=== PATIENT | female | born 1975 | race Caucasian/White ===

== ENCOUNTER 2021-05-31 11:46 | Emergency (ER) | payer BC, SELFPAY ==
[2021-05-31] VITALS (16 sets, daily range): BP systolic 149–166; BP diastolic 87–108; PULSE 74–84; RESP 15–118; TEMP 36.3–36.4; O2SAT 97–100
--- NOTE | ~2021-05-31 | XR_ITS ---
EXAMINATION: XR chest 2V DATE: 05/31/2021 14:25 INDICATION: Chest pressure TECHNIQUE: PA and lateral views of the chest are obtained. COMPARISON: None available FINDINGS: The lungs are free of acute opacities. There is no pleural effusion or pneumothorax. The ca rdiomediastinal silhouette is normal. There is mild thoracic spondylosis. Surgical clips in the upper abdomen on the lateral view are likely from prior cholecystectomy. IMPRESSION: 1. No acute cardiopulmonary abnormality. Reviewed, dictated and finalized at location B.
--- NOTE | ~2021-05-31 | CT_ITS ---
EXAMINATION: CTA brain carotid EXAM DATE: 05/31/2021 15:50 INDICATION: R sided paresthesia. Hypertension. TECHNIQUE: Noncontrast head CT. Spiral CTA of the carotid arteries was performed with intravenous i njection 100 cc of Omnipaque 350. Axial, coronal, sagittal reformatted images reviewed. Additional r eformatted images created on dedicated 3-D workstation. NASCET comparable standard used to assess th e degree of arterial stenosis. Spiral CT angiogram cerebral arteries performed with the same intrave nous injection of contrast. Source images of the brain CTA transferred to dedicated workstation for 3 -D rotational image creation. Coronal, sagittal maximum intensity pixel images also reviewed. The d ose-length product (DLP) for this examination was 1664.92 mGy-cm. The exposure was tailored accordi ng to patient size, and iterative reconstruction (ASIR) was used as additional dose reduction techniq ue. There is no prior study for comparison. FINDINGS: The right vertebral artery is dominant. There is bilateral carotid bulb 0% stenosis, no foc al extracranial carotid plaque identified. Minimal right carotid siphon arterial sclerosis without st enosis. There is no carotid or vertebral basilar arterial dissection or fibromuscular dysplasia. The re are no cerebral artery aneurysms. There is symmetric cerebral artery arborization. The sagittal, t ransverse and sigmoid sinuses enhance normally, no venous sinus thrombosis. Internal cerebral veins a lso enhance normally. There is no acute intraparenchymal hemorrhage. No evidence of intraparenchymal brain mass lesion. N o evidence of acute infarction. There is no mass effect or midline shift. There is no obstructive hy drocephalus suspected. There are no extra-axial collections. Incidental Findings: Mild cervical spondylosis. IMPRESSION: 1. No acute carotid or intracranial findings. 2. Bilateral carotid bulb 0% stenosis. Reviewed, dictated and finalized at location G.
--- NOTE | 2021-05-31 11:59 | ECG_ITS ---
Measurements Intervals [place] Rate: 76 P: -19 LA: 142 QRS: -25 QRSD: 77 T: -21 QT: 360 QTc: 405 Interpretive Statements SINUS RHYTHM BORDERLINE LEFT AXIS DEVIATION [QRS AXIS < -20] POSSIBLE PREVIOUS INFERIOR WALL OR NO PREVIOUS ECG AVAILABLE FOR COMPARISON Electronically Signed On 05-31-2021 15:47:48 CDT by Jacky Barr M.D.
--- NOTE | 2021-05-31 13:28 | PC.NURSE ---
Pt ambulatory to ED with complaints of blurred vision and bilateral eyes and tingling to right arm and leg. Pt states blurred vision has been ongoing for a few days without improvement. Tingling of right leg started around 0900 this morning and was shortly followed by tingling of the right arm. Pt denies weakness to extremities. Denies numbness of extremities. Pt denies sensory changes to face. No facial droop noted. VSS. A&O x4 with clear speech. Pt states last known normal was Monday.
--- NOTE | 2021-05-31 14:09 | PC.NURSE ---
Dr. Matthew at bedside for pt assessment.
--- NOTE | 2021-05-31 14:17 | PC.NURSE ---
Pt to radiology.
[2021-05-31 14:18] LABS: Glucose Point of Care 95 mg/dl (65-105)
[2021-05-31] MEDS: SODIUM CHLORIDE 0.9% IV 1,000 ML 999 ML IV CONT (14:36)
[2021-05-31 14:50] LABS: Add Urine Microscopic? NO; Appearance Urine Clear (Clear); Bilirubin Urine Negative (Negative); Blood Urine Negative (Negative); Color Urine Yellow (Yellow); Glucose Urine UA Negative (Negative); Ketones Urine Negative (Negative); Leukocyte Esterase Ur Negative LEU/UL (Negative); Nitrate Urine Negative (Negative); Protein Urine Negative (Negative); Specific Grav Ur 1.017 (1.001-1.035); Urobilinogen Urine Negative mg/dL (<2.0)
[2021-05-31 14:58] LABS: Basophils Absolute Auto 0.1 K/mm3 (0.0-0.1); Basophils Percent Auto 0.6 % (0.2-1.2); Eosinophils Absolute Auto 0.1 K/mm3 (0-0.3); Eosinophils Percent Auto 1.2 % (0-4.4); Hemoglobin 14.6 g/dL (12.0-15.0); Immature Granulocyte Absolute 0.04 K/mm3 (0.00-0.031); Immature Granulocyte Percent A 0.4 % (0-0.5); Lymphocytes Absolute Auto 3.18 K/mm3 (0.9-3.2); Lymphocytes Percent Auto 28.8 % (18.3-44.2); Mean Corpuscular HGB Conc 34.8 g/dl (32-36); Mean Corpuscular Volume 97.9 fl (80-100); Mean Platelet Volume 9.7 fl (7.4-10.4); Monocytes Absolute Auto 0.9 K/mm3 (0.1-0.6); Monocytes Percent Auto 8.3 % (2.6-8.5); Neutrophils Absolute Auto 6.7 K/mm3 (1.3-6.7); Neutrophils Percent Auto 60.7 % (45.5-73.1); Platelet Count Result 227 k/mm3 (150-375); Red Blood Count 4.29 M/mm3 (4.2-5.4); Red Cell Distribution Width 11.8 % (11.5-14.5)
[2021-05-31 15:08] LABS: INR 1.1; Prothrombin Time 13.3 Seconds (11.1-14.7)
[2021-05-31 15:09] LABS: Amphetamine Screen Urine Negative (Negative); Barbiturate Screen Urine Negative (Negative); Benzodiazepines Screen Urine Negative (Negative); Cannabinoid Screen Urine Negative (Negative); Cocaine Screen Urine Negative (Negative); Methadone Screen Urine Negative (Negative); Opiate Screen Urine Negative (Negative); Phencyclidine Screen Urine Negative (Negative)
[2021-05-31 15:15] LABS: Potassium 3.9 mmol/L (3.4-5.0)
[2021-05-31 15:27] LABS: Troponin I < 0.012 ng/mL (0.000-0.034)
[2021-05-31 15:34] LABS: Alanine Aminotransferase 27 U/L (4-35); Albumin Level 4.2 g/dL (3.5-5.1); Alkaline Phosphatase 75 U/L (38-126); Anion Gap 5 mmol/L (8-16); Aspartate Amino Transferase 24 U/L (14-36); Bilirubin,Total 0.6 mg/dL (0.2-1.3); Blood Urea Nitrogen 13 mg/dL (7-17); Calcium 8.9 mg/dL (8.4-10.2); Carbon Dioxide 27 mmol/L (22-30); Chloride 104 mmol/L (98-107); Estimated CRCL calculation 111 ml/min; Estimated Glomerular Filt Rate > 60; Glucose 92 mg/dL (65-110); Sodium 136 mmol/L (137-145)
--- NOTE | 2021-05-31 15:38 | PC.NURSE ---
Pt to CT.
--- NOTE | 2021-05-31 16:52 | ED.NEUROSD ---
HPI - Neuro Symptoms/Deficit General Chief Complaint: Neuro Symptoms/Deficit Stated Complaint: High Blood Pressure Time Seen by Provider: 05/31/21 13:55 Source: patient History of Present Illness HPI Narrative: Patient presents with numbness on the right arm and right lower extremity. Patient reports she was at work and developed left-sided chest pain shortly after that pain resolved well right upper extremity and right lower extremity numbness. Scribes a sensation of feeling full she reports she is able to ambulate and has good strength reports she is able to feel normally in those extremities just feels full. She denies any shortness of breath she denies any recent hospitalizations or surgeries denies prior history of blood clots. Denies any fevers, cough, congestion and she denies abdominal pain, nausea, vomiting, diaphoresis denies any significant family history of cardiac disease. Related Data Home Medications Medication Instructions Recorded Confirmed No Home Medications 05/31/21 05/31/21 Allergies Allergy/AdvReac Type Severity Reaction Status Date / Time bita Allergy Mild Unknown Verified 05/31/21 13:32 tramadol [From Ultram] Allergy Mild Unknown Verified 05/31/21 13:32 vilazodone [From Viibryd] Allergy Mild Unknown Verified 05/31/21 13:32 Review of Systems Review of Systems: CONSTITUTIONAL: Denies fever, chills, or sweats. EYES: Denies visual changes, redness, or discharge. ENT: Denies rhinorrhea, congestion, sore throat, or otalgia. CARDIOVASCULAR: Denies chest pain, palpitations, or edema. RESPIRATORY: Denies cough or dyspnea. GASTROINTESTINAL: Denies abdominal pain, nausea, vomiting, or diarrhea. GENITOURINARY: Denies dysuria or hematuria. SKIN: Denies rash or itching. MUSCULOSKELETAL: Denies back pain, joint pain, or myalgia. NEUROLOGIC: Denies headache, numbness, dizziness, or weakness. PSYCHIATRIC: Denies anxiety or depression. All systems reviewed & are unremarkable except as noted in HPI and below PMFSH Past Medical History Medical History Goiter History of depression Vitamin D deficiency Surgical History Surgical History Delivery by section 1992, 1993, 2005 History of cholecystectomy 2004 History of hysterectomy 2006 Family History Family History Mother Cervical cancer Mother Rheumatoid arthritis Social History Social History Smoking status: Current every day smoker Tobacco type: cigarettes Second hand tobacco smoke exposure: Yes Additional smoking assessment comments: 1 pack a day, smoking for 19 years Alcohol intake: current Substance use: never Substance use type: does not use Exam Narrative: GENERAL: Well-appearing, well-nourished, and in no acute distress. HEAD: Normocephalic, atraumatic. EYES: PERRLA and EOMI. ENT: Nares clear, no rhinorrhea or epistaxis. Mucous membranes moist. NECK: Supple. No masses. No JVD CHEST: Clear to auscultation. No respiratory distress. No wheezes rales or rhonchi HEART: Regular rate and rhythm. No murmur heard. Normal peripheral pulses. ABDOMEN: Soft, nontender, nondistended, normal active bowel sounds. EXTREMITIES: Normal range of motion. No edema. SKIN: Warm, dry, no rash. NEURO: Cranial nerves II through XII are intact patient has 5/5 strength in all extreme sensation intact to light touch in all extremities alert and oriented x3. PSYCH: Normal mood and affect. Course Reevaluation(s) Reevaluation #1: Patient reports feeling improved results and plan reviewed with patient. Patient is comfortable with outpatient plan. Date: 05/31/21 Time: 16:53 Consultations Consultation #1: Case discussed with Dr. Sheppard from neurology given patient's improvements in work-up thus far being negative symptoms u
== END 2021-05-31 17:09 | disposition home or self-care (01) ==
PROVIDERS: Emergency Provider Emergency Medicine; PCP Family Medicine
DX: R07.9 Chest pain, unspecified (principal); R20.2 Paresthesia of skin; E55.9 Vitamin D deficiency, unspecified; F17.210 Nicotine dependence, cigarettes, uncomplicated; R94.31 Abnormal electrocardiogram [ECG] [EKG]
CPT/HCPCS: 36415; 70496; 70498; 71046; 80053; 80307; 81003; 81025; 82948; 84484; 85025; 85610; 85730; 93005; 96360; 96361; 99284; J7030; Q9967

== ENCOUNTER 2021-12-21 09:39 | Outpatient (CLI) | payer BC, SELFPAY ==
[2021-12-21 19:38] LABS: Basophils Absolute Auto 0.1 K/mm3 (0.0-0.1); Basophils Percent Auto 0.6 % (0.2-1.2); Eosinophils Absolute Auto 0.2 K/mm3 (0-0.3); Eosinophils Percent Auto 1.4 % (0-4.4); Hematocrit 45.2 % (37.0-47.0); Hemoglobin 15.6 g/dL (12.0-15.0); Immature Granulocyte Absolute 0.05 K/mm3 (0.00-0.031); Immature Granulocyte Percent A 0.5 % (0-0.5); Lymphocytes Absolute Auto 2.73 K/mm3 (0.9-3.2); Lymphocytes Percent Auto 26.3 % (18.3-44.2); Mean Corpuscular HGB Conc 34.5 g/dl (32-36); Mean Corpuscular Hemoglobin 33.4 pg (26-34); Mean Corpuscular Volume 96.8 fl (80-100); Mean Platelet Volume 10.4 fl (7.4-10.4); Monocytes Absolute Auto 0.8 K/mm3 (0.1-0.6); Monocytes Percent Auto 7.5 % (2.6-8.5); Neutrophils Absolute Auto 6.6 K/mm3 (1.3-6.7); Neutrophils Percent Auto 63.7 % (45.5-73.1); Platelet Count Result 245 k/mm3 (150-375); Red Blood Count 4.67 M/mm3 (4.2-5.4); Red Cell Distribution Width 11.9 % (11.5-14.5); White Blood Count 10.4 K/mm3 (4.5-10.0)
[2021-12-21 19:47] LABS: Alanine Aminotransferase 36 U/L (6-35); Albumin Level 4.3 g/dL (3.5-5.1); Alkaline Phosphatase 80 U/L (38-126); Anion Gap 8 mmol/L (8-16); Aspartate Amino Transferase 25 U/L (14-36); Bilirubin,Total 0.7 mg/dL (0.2-1.3); Blood Urea Nitrogen 13 mg/dL (7-17); Calcium 9.4 mg/dL (8.4-10.2); Carbon Dioxide 23 mmol/L (22-30); Chloride 104 mmol/L (98-107); Cholesterol 189 mg/dL (0-200); Estimated Glomerular Filt Rate > 60; Glucose 98 mg/dL (65-110); HDL Direct 54 mg/dL; Potassium 4.3 mmol/L (3.4-5.0); Sodium 135 mmol/L (137-145); Triglycerides 95 mg/dL (<150)
[2021-12-21 20:01] LABS: LDL Cholesterol Direct 112 mg/dL
== END 2021-12-21 09:40 | disposition home or self-care (01) ==
LOC: ANHGOSHLAB 09:40
PROVIDERS: PCP Family Medicine; Visit Provider Nurse Practitioner
DX: Z13.6 Encounter for screening for cardiovascular disorders (principal); E55.9 Vitamin D deficiency, unspecified; Z13.220 Encounter for screening for lipoid disorders
CPT/HCPCS: 36415; 80053; 80061; 82306; 85025

== ENCOUNTER 2022-03-22 16:01 | Outpatient (CLI) | payer BC, SELFPAY ==
--- NOTE | ~2022-03-22 | MM_ITS ---
EXAMINATION: MM screening antonella BI w angela HISTORY: Screening mammogram TECHNIQUE: Craniocaudal and mediolateral oblique 3-D tomosynthesis images were obtained and synthetic 2-D images were generated. CAD analysis was submitted and interpreted. COMPARISON: No prior mammogram is available for comparison at this institution. BREAST PARENCHYMAL COMPOSITION: The breasts are heterogeneously dense, which may obscure small masses . FINDINGS: Right breast: There is no evidence of suspicious mass, calcification, or architectural dist ortion to suggest malignancy in either breast. Left breast: There is asymmetry/possible mass in the central left breast. Diagnostic left mammogram a nd left breast ultrasound examination are recommended. IMPRESSION: 1. Left breast asymmetry 2. Diagnostic left mammogram and left breast ultrasound examination are recommended BI-RADS Category 0: Incomplete: Needs additional imaging evaluation. Reviewed, dictated and finalized at location A. ORKING ADMINISTRATOR IMPRESSION: 1. Left breast asymmetry 2. Diagnostic left mammogram and left breast ultrasound examination are recomme nded BI-RADS Category 0: Incomplete: Needs additional imaging evaluation.
== END 2022-03-22 16:02 | disposition home or self-care (01) ==
PROVIDERS: PCP Family Medicine; Visit Provider Nurse Practitioner
DX: Z12.31 Encounter for screening mammogram for malignant neoplasm of breast (principal); R92.8 Other abnormal and inconclusive findings on diagnostic imaging of breast
CPT/HCPCS: 77063; 77067

== ENCOUNTER 2022-04-14 12:07 | Outpatient (CLI) | payer BC, SELFPAY ==
--- NOTE | ~2022-04-14 | MMUS_ITS ---
EXAMINATION: MM diagnostic antonella LT w angela, US breast LT complete HISTORY: Follow-up left breast asymmetry TECHNIQUE: Additional 3-D tomosynthesis images of the left breast were performed and synthetic 2-D im ages were generated. CAD analysis was submitted and interpreted. High resolution complete left breast ultrasound was performed. COMPARISON: 03/22/2022 BREAST PARENCHYMAL COMPOSITION: The breasts are heterogeneously dense, which may obscure small masses FINDINGS: MAMMOGRAPHIC FINDINGS: There is a persistent asymmetries slightly lateral to the midline on CC view, middle third. No suspic ious calcifications or architectural distortion. ULTRASOUND: Complete US of all 4 quadrants of the left breast and retroareolar region was reviewed. There are mul tiple simple and complicated cysts of the left breast. At 12:00, 5 cm from the nipple, there is an ov al parallel oriented hypoechoic mass without posterior features or internal vascularity measuring 10 mm. At 12:00, 2 cm from the nipple there is an oval hypoechoic mass without posterior features or int ernal vascularity. Parallel orientation. This lesion measures approximately 6 mm. IMPRESSION: 1. Probable benign left breast masses at 12:00 position, 5 and 2 cm from the nipple respectively. 2. Recommend 6 month follow-up diagnostic left mammogram and ultrasound BI-RADS category 3, probably benign findings. Reviewed, dictated and finalized at location A. UNITY RECREATION PROGRAMMER IMPRESSION: 1. Probable benign left breast masses at 12:00 position, 5 and 2 cm from the ni pple respectively. 2. Recommend 6 month follow-up diagnostic left mammogram and ultrasound BI-RADS category 3, probably benign findings.
== END 2022-04-14 12:08 | disposition home or self-care (01) ==
PROVIDERS: PCP Family Medicine; Visit Provider Nurse Practitioner
DX: R92.8 Other abnormal and inconclusive findings on diagnostic imaging of breast (principal)
CPT/HCPCS: 76641; 77061; 77065; G0279

== ENCOUNTER 2022-09-29 11:51 | Outpatient (CLI) | payer BC, SELFPAY ==
--- NOTE | ~2022-09-29 | MMUS_ITS ---
EXAMINATION: MM diagnostic antonella LT w angela, US breast LT complete HISTORY: Follow-up probable benign left breast mass TECHNIQUE: Additional 3-D tomosynthesis images of the left breast were performed and synthetic 2-D im ages were generated. CAD analysis was submitted and interpreted. High resolution complete left breast ultrasound was performed. COMPARISON: 03/22/2022 BREAST PARENCHYMAL COMPOSITION: The breasts are heterogeneously dense, which may obscure small masses FINDINGS: MAMMOGRAPHIC FINDINGS: There are no suspicious masses, calcifications or architectural distortion in the left breast to sugg est malignancy. ULTRASOUND: Complete US of all 4 quadrants of the left breast and retroareolar region was reviewed. There are mul tiple simple and complicated cysts of the left breast without significant interval change, largest me asuring 1 cm. There are multiple mildly prominent ducts of the left breast. No suspicious masses to s uggest malignancy. IMPRESSION: 1. No evidence for malignancy in the left breast. Benign findings. 2. Routine yearly screening mammogram and regular clinical breast examination are recommended. BI-RADS Category 2: Benign finding(s). Reviewed, dictated and finalized at location A. IMPRESSION: 1. No evidence for malignancy in the left breast. Benign findings. 2. Routine yearly screening mammogram and regular clinical breast examination a re recommended. BI-RADS Category 2: Benign finding(s).
== END 2022-09-29 11:52 | disposition home or self-care (01) ==
PROVIDERS: PCP Family Medicine; Visit Provider Nurse Practitioner Family
DX: N63.20 Unspecified lump in the left breast, unspecified quadrant (principal)
CPT/HCPCS: 76641; 77061; 77065; G0279

== ENCOUNTER 2023-03-27 08:19 | Outpatient (CLI) | payer BC, SELFPAY ==
[2023-03-27 19:18] LABS: Basophils Absolute Auto 0.1 K/mm3 (0.0-0.1); Basophils Percent Auto 0.7 % (0.2-1.2); Eosinophils Absolute Auto 0.1 K/mm3 (0-0.3); Hematocrit 47.6 % (37.0-47.0); Hemoglobin 15.4 g/dL (12.0-15.0); Immature Granulocyte Absolute 0.05 K/mm3 (0.00-0.031); Immature Granulocyte Percent A 0.4 % (0-0.5); Lymphocytes Absolute Auto 2.78 K/mm3 (0.9-3.2); Lymphocytes Percent Auto 23.2 % (18.3-44.2); Mean Corpuscular HGB Conc 32.4 g/dl (32-36); Mean Corpuscular Hemoglobin 33.1 pg (26-34); Mean Corpuscular Volume 102.4 fl (80-100); Mean Platelet Volume 10.8 fl (7.4-10.4); Monocytes Absolute Auto 0.9 K/mm3 (0.1-0.6); Monocytes Percent Auto 7.4 % (2.6-8.5); Neutrophils Percent Auto 67.3 % (45.5-73.1); Platelet Count Result 276 k/mm3 (150-375); Red Blood Count 4.65 M/mm3 (4.2-5.4); Red Cell Distribution Width 12.2 % (11.5-14.5)
[2023-03-27 19:34] LABS: LDL Cholesterol Direct 116 mg/dL
[2023-03-27 19:45] LABS: Alanine Aminotransferase 33 U/L (6-35); Albumin Level 4.2 g/dL (3.5-5.1); Alkaline Phosphatase 92 U/L (38-126); Anion Gap 6 mmol/L (8-16); Aspartate Amino Transferase 32 U/L (14-36); Bilirubin,Total 0.5 mg/dL (0.2-1.3); Blood Urea Nitrogen 14 mg/dL (7-17); Calcium 9.5 mg/dL (8.4-10.2); Carbon Dioxide 30 mmol/L (22-30); Chloride 101 mmol/L (98-107); Cholesterol 186 mg/dL (0-200); Cortisol Random 7.48 ug/dL; Estimated Glomerular Filt Rate > 60; Glucose 59 mg/dL (65-110); HDL Direct 48 mg/dL; Potassium 4.2 mmol/L (3.4-5.0); Sodium 137 mmol/L (137-145); Triglycerides 96 mg/dL (<150)
[2023-03-27 19:53] LABS: Thyroid Stimulating Hormone 0.828 uIU/mL (0.465-4.680)
[2023-03-31 02:07] LABS: Vitamin D 1,25 (OH)2 Total 32 pg/mL (18-72); Vitamin D2 1,25 (OH)2 <8 pg/mL; Vitamin D3 1,25 (OH)2 32 pg/mL
== END 2023-03-27 08:20 | disposition home or self-care (01) ==
LOC: ANHGOSHLAB 08:20
PROVIDERS: PCP Family Medicine; Visit Provider Nurse Practitioner Family
DX: E55.9 Vitamin D deficiency, unspecified (principal); I10 Essential (primary) hypertension; Z00.00 Encounter for general adult medical examination without abnormal findings; G47.9 Sleep disorder, unspecified
CPT/HCPCS: 36415; 80053; 80061; 82533; 82652; 84443; 85025

== ENCOUNTER 2023-05-12 00:31 | Day surgery (SDC) | payer BC, SELFPAY ==
[2023-04-20 11:33] VITALS: BMI 36.6
--- NOTE | 2023-05-10 15:29 | SUR.PREOP ---
Colonoscopy date and time confirmed with pt.
[2023-05-12 07:21] VITALS: BP 144/87; PULSE 78; RESP 20; TEMP 36.3; O2SAT 99
[2023-05-12] MEDS: LACTATED RINGERS 1,000 ML 150 ML IV CONT (07:32)
--- NOTE | 2023-05-12 07:46 | P.PNAN_ITS ---
Anes - Initial Pre Proc Eval Procedure: Operation Date: 05/12/23 08:30 Proposed Procedures p Screening Colonoscopy - Meng Vazquez MD Date/Time: 05/12/23 07:46 Surgeon: Meng Vazquez MD Pre Op Diagnosis: neoplasm screening Patient Data Age: 48 Gender: F Height: 1.73 m Weight: 109.1 kg Last Vital Signs Temp 36.3 C L 05/12/23 07:21 Pulse 78 05/12/23 07:21 Resp 20 05/12/23 07:21 BP 144/87 H 05/12/23 07:21 Pulse Ox 99 05/12/23 07:21 O2 Del Method Room Air 05/12/23 07:21 Allergies Allergy/AdvReac Type Severity Reaction Status Date / Time bita Allergy Mild Unknown Verified 05/12/23 07:20 tramadol [From Ultram] Allergy Mild Unknown Verified 05/12/23 07:20 vilazodone [From Viibryd] Allergy Mild Unknown Verified 05/12/23 07:20 Home Medications Medication Instructions Recorded Confirmed Type cetirizine 10 mg tablet (Zyrtec) 10 mg PO DAILY PRN Sinus Symptoms 12/17/21 04/20/23 History cholecalciferol (vitamin D3) 25 25 mcg PO DAILY 12/17/21 04/20/23 History mcg (1,000 unit) capsule atenolol 25 mg tablet 25 mg PO DAILY #90 tabs 03/31/23 04/20/23 Rx Patient hx anesthesia problems: none Family hx anesthesia problems: none Results Review: All pre-operative results and documents have been reviewed as part of the pre- operative evaluation. [facility], [facility] Past Medical History Medical History Goiter History of depression Vitamin D deficiency Surgical History Surgical History Delivery by section 1992, 1993, 2005 History of cholecystectomy 2004 History of hysterectomy 2005 Family History Family History Mother Cervical cancer Mother Rheumatoid arthritis Social History Social History Smoking packs per day: 0.75 Smoking cigarettes per day: 15.0 Years smoked: 20 Smoking pack-years: 15.00 Smoking status: Current every day smoker Tobacco type: cigarettes Second hand tobacco smoke exposure: Yes Additional smoking assessment comments: 1 pack a day, smoking for 19 years Alcohol intake: current Drinks per week: 3 Substance use: never Substance use type: does not use Living arrangements: with family Spiritual care concerns: No Anes - Eval Final PreProcedure Day of Procedure 05/12/23 07:46 Patient weight: obese Heart: regular rate and rhythm Lungs: clear to auscultation Airway: Mallampati scale class II Neurological: alert and oriented Last oral intake: >/= 8 hours ASA classification: II Emergent: no Anesthetic plan: proceed Anesthesia type and monitoring: general GIVS and standard monitoring Results Review: All pre-operative results and documents have been reviewed as part of the pre- operative evaluation. Informed Consent: The patient's anesthetic plan and its attendant risks and benefits were discussed with the patient/family/POA. Questions were solicited and answers provided to the satisfaction of the patient/family/POA.
--- NOTE | 2023-05-12 08:10 | PM.HPGS ---
History of Present Illness History of Present Illness Consent: Risks, benefits, and alternatives have been discussed and questions answered. Patient agrees to proceed with procedure. Chief complaint: neoplasm screening Narrative: Jennifer Roamn is a 48 year old female here for screening colonoscopy, had one about 8 years ago with had GI issues Review of Systems Constitutional: Constitutional: Denies headache(s) and Denies weakness Eyes: Eyes: Denies blurry vision ENT: Reports Normal hearing present, Denies headache(s) and Denies neck pain Cardiovascular: Cardiovascular: Denies chest pain and Denies dyspnea Respiratory: Respiratory: Denies dyspnea Gastrointestinal: Gastrointestinal: Reports no additional gastrointestinal complaints Genitourinary: Genitourinary: Denies dysuria Musculoskeletal: Musculoskeletal: Denies neck pain Integumentary/Breasts: Skin/Breast: Denies dry skin Neurologic: Reports Normal hearing present, Denies headache(s) and Denies weakness Psychiatric: Psychiatric: Denies anxiety Endocrine: Endocrine: Denies change in body appearance Hematologic/Lymphatic: Hematologic/Lymphatic: Denies easy bleeding Allergic/Immunologic: Allergic/Immunologic: Denies urticaria PMFSH Past Medical History Medical History Goiter History of depression Vitamin D deficiency Surgical History Surgical History Delivery by section 1992, 1993, 2005 History of cholecystectomy 2004 History of hysterectomy 2005 Family History Family History Mother Cervical cancer Mother Rheumatoid arthritis Social History Social History Smoking packs per day: 0.75 Smoking cigarettes per day: 15.0 Years smoked: 20 Smoking pack-years: 15.00 Smoking status: Current every day smoker Tobacco type: cigarettes Second hand tobacco smoke exposure: Yes Additional smoking assessment comments: 1 pack a day, smoking for 19 years Alcohol intake: current Drinks per week: 3 Substance use: never Substance use type: does not use Living arrangements: with family Spiritual care concerns: No Meds Home Medications and Allergies Home Medications Medication Instructions Recorded Confirmed Type cetirizine 10 mg tablet (Zyrtec) 10 mg PO DAILY PRN Sinus Symptoms 12/17/21 04/20/23 History cholecalciferol (vitamin D3) 25 25 mcg PO DAILY 12/17/21 04/20/23 History mcg (1,000 unit) capsule atenolol 25 mg tablet 25 mg PO DAILY #90 tabs 03/31/23 04/20/23 Rx Allergies Allergy/AdvReac Type Severity Reaction Status Date / Time bita Allergy Mild Unknown Verified 05/12/23 07:20 tramadol [From Ultram] Allergy Mild Unknown Verified 05/12/23 07:20 vilazodone [From Viibryd] Allergy Mild Unknown Verified 05/12/23 07:20 Vital Signs Vital Signs - 24 hr 05/12/23 07:21 Temperature 97.4 F L Pulse Rate 78 Respiratory Rate 20 Blood Pressure 144/87 H Pulse Oximetry 99 Oxygen Delivery Room Air Exam Const: General: comfortable and no acute distress HENMT: Face/Nose/Sinus: Normal nares present Eyes: General: appearance normal, both eyes and all related structures Neck: Neck: no JVD Resp: Auscultation: clear to auscultation bilaterally Cardio: Rate: regular rate Rhythm: regular rhythm GI: Inspection: non-distended GI Palp: Yes Soft to palpation Skin: General skin exam: normal color Neuro: General: gait normal Speech: normal speech Extrem: General: normal to inspection Psych: Mental Status: mental status grossly normal Assessment and Plan Assessment and plan (1) Colon cancer screening: Code(s): Z12.11 - Encounter for screening for malignant neoplasm of colon Status: Acute Assessment and Plan: colonoscopy
[2023-05-12 08:30] VITALS: BP 125/84; PULSE 77; RESP 23; O2SAT 96
[2023-05-12 08:40] VITALS: BP 127/81; PULSE 65; RESP 17; O2SAT 100
[2023-05-12 08:50] VITALS: BP 128/85; PULSE 72; RESP 16; O2SAT 100
== END 2023-05-12 09:05 | disposition home or self-care (01) ==
PROVIDERS: PCP Family Medicine; Visit Provider Internal Medicine Gastroenterology
PROC: 0DJD8ZZ Inspection of Lower Intestinal Tract, Via Natural or Artificial Opening Endoscopic (ICD-10-PCS; CPT 45378; principal; 2023-05-12 08:30)
DX: Z12.11 Encounter for screening for malignant neoplasm of colon (principal); D12.3 Benign neoplasm of transverse colon; K64.8 Other hemorrhoids; F32.A Depression, unspecified; E55.9 Vitamin D deficiency, unspecified; F17.210 Nicotine dependence, cigarettes, uncomplicated; E66.9 Obesity, unspecified; Z68.36 Body mass index [BMI] 36.0-36.9, adult; Z90.49 Acquired absence of other specified parts of digestive tract; Z80.49 Family history of malignant neoplasm of other genital organs
CPT/HCPCS: 45385; 88305; J2704; J7120

== ENCOUNTER 2023-11-25 09:50 | Outpatient (CLI) | payer BC, SELFPAY ==
--- NOTE | 2023-11-25 10:04 | ECG_ITS ---
Test Date: 2023-11-25 10:13:12 Measurements Intervals [place] Rate: 64 P: 16 MO: 155 QRS: -6 QRSD: 76 T: 2 QT: 397 QTc: 412 Interpretive Statements SINUS RHYTHM RSR' IN V1 OR V2, PROBABLY NORMAL VARIANT CONSIDER INFERIOR INFARCT, AGE INDETERMINATE ABNORMAL ECG No previous ECG available for comparison Electronically Signed On 11-25-2023 15:58:40 CDT by Kevin Mohan D.O.
== END 2023-11-25 09:51 | disposition home or self-care (01) ==
LOC: ANHLAB 09:52
PROVIDERS: PCP Family Medicine; Visit Provider Anesthesiology
DX: Z01.818 Encounter for other preprocedural examination (principal); K42.9 Umbilical hernia without obstruction or gangrene; I10 Essential (primary) hypertension; R94.31 Abnormal electrocardiogram [ECG] [EKG]
CPT/HCPCS: 36415; 86850; 86900; 86901; 93005

== ENCOUNTER 2023-11-29 02:05 | Day surgery (SDC) | payer BC, SELFPAY ==
[2023-11-20 12:44] VITALS: BMI 36.8
--- NOTE | 2023-11-20 13:31 | PC.NURSE ---
Report to the Outpatient Waiting Room, entrance under the green pavilion located off [facility], at time _0600 on date _11/29/23 . Planned Procedure Time: _0730 .? Time changes happen often and if your time is changed the preop area will call you the afternoon before. - You and your visitor will be asked to self-screen and do not enter if you have any COVID symptoms. Please call surgeon if you need to reschedule. - A mask is optional within the hospital at this time. Patients may have clear liquids (water, carbonated beverages, clear teas, apple juice) until 3 hours prior to surgery with a maximum of 20 ounces. - No food from midnight until time of surgery and no smoking Take only the following medications with a SIP of water on the morning of surgery: ____NONE-(TAKES MEDS AT NOC) DO NOT STOP ANY OF YOUR OTHER PRESCRIPTION MEDICATIONS PRIOR TO SURGERY EXCEPT THE FOLLOWING Medications to discontinue per physician N/A Date to take last dose N/A Please no make-up, nail yakut, hairspray, perfume, deodorant, or body powder the day of surgery.? No jewelry (including any body piercings) or valuables the day of surgery, leave them at home.? Please take a shower or bath the night before, or the morning of, surgery with an antibacterial soap.? Wear comfortable, loose fitting clothing.? - Jewelry must be removed prior to entering the operating room.? Rings and piercings that are not removed may be cut off. - The hospital will not accept responsibility for valuables.? - Please leave all valuables, including medications, at home the day of surgery. If you are going home after surgery, a licensed local driver must drive you home.? - NO public transportation without another adult if you receive anesthesia. - We recommend that an adult stay with you for 24 hours following discharge. - We also recommend that you do not drive, make important decision, drink alcoholic beverages, or take any drugs that were not prescribed by your health care provider for at least 24 hours after your discharge time. Follow any additional instructions given to you from your surgeon. Telephone instructions given to __SONYA and asked if any additional questions and then verbalized understanding. Patient advised to call surgeon office or pre surgery nurse liaison [phone] if any additional questions.
[2023-11-29] VITALS (13 sets, daily range): BP systolic 100–162; BP diastolic 65–90; PULSE 59–83; RESP 14–20; TEMP 35.6–36.4; O2SAT 91–100
[2023-11-29] MEDS: LACTATED RINGERS 1,000 ML 30 ML IV CONT ×2 (07:00→09:38)
[2023-11-29] MEDS: ACETAMINOPHEN 500 MG TABLET 1000 MG PO (07:00)
[2023-11-29] MEDS: KETOROLAC 15 MG/ML VIAL (*BKC) IV PUSH (07:00)
--- NOTE | 2023-11-29 07:09 | PM.IMHP ---
H&P: HPI History of Present Illness Date/Time: 11/29/23 07:09 Chief Complaint: umbilical hernia Narrative: 48 yo woman presents for umbilical hernia repair. She reports no changes since last seen in office. Review of Systems Review of Systems: All systems reviewed & are unremarkable except as noted in HPI and below Constitutional: Constitutional: Denies chills, Denies fever(s), Denies headache(s) and Denies weight loss Eyes: Eyes: Denies change in vision ENT: Denies dizziness, Denies headache(s), Denies neck mass and Denies throat swelling Cardiovascular: Cardiovascular: Denies chest pain, Denies lightheadedness and Denies dyspnea Respiratory: Respiratory: Denies cough, Denies dyspnea and Denies wheezing Gastrointestinal: Gastrointestinal: Denies abdominal pain, Denies change in bowel habits, Denies nausea and Denies vomiting Genitourinary: Genitourinary: Denies hematuria and Denies dysuria Musculoskeletal: Musculoskeletal: Reports as per HPI Integumentary/Breasts: Skin/Breast: Reports as per HPI Neurologic: Denies dizziness and Denies headache(s) Allergic/Immunologic: Allergic/Immunologic: Denies throat swelling and Denies wheezing PMF Past Medical History Medical History Goiter History of depression Inguinal hernia Palpitations with regular cardiac rhythm Vitamin D deficiency Surgical History Surgical History Delivery by section 1992, 1993, 2006 History of cholecystectomy 2004 History of hysterectomy 2006 Family History Family History Mother Cervical cancer Mother Rheumatoid arthritis Social History Social History Smoking packs per day: 0.5 Smoking cigarettes per day: 10.0 Years smoked: 24 Smoking pack-years: 12.00 Smoking status: Current every day smoker Tobacco type: cigarettes Second hand tobacco smoke exposure: Yes Additional smoking assessment comments: 1 pack a day, smoking for 19 years Alcohol intake: current Drinks per week: 3 Substance use: current Substance use type: does not use Living arrangements: with family Spiritual care concerns: No Meds Home Medications and Allergies Home Medications Medication Instructions Recorded Confirmed Type cetirizine 10 mg tablet (Zyrtec) 10 mg PO DAILY PRN Sinus Symptoms 12/17/21 11/20/23 History cholecalciferol (vitamin D3) 25 25 mcg PO DAILY 12/17/21 11/20/23 History mcg (1,000 unit) capsule atenolol 25 mg tablet 25 mg PO DAILY #90 tabs 03/31/23 11/20/23 Rx omeprazole 40 mg capsule,delayed 40 mg PO DAILY #90 caps 10/05/23 11/20/23 Rx release Allergies Allergy/AdvReac Type Severity Reaction Status Date / Time bita Allergy Mild Unknown Verified 11/20/23 13:03 tramadol [From Ultram] Allergy Mild Dizziness Verified 11/20/23 13:02 vilazodone [From Viibryd] Allergy Mild Abdominal Verified 11/20/23 13:02 Pain Exam Const: General: no acute distress and alert Orientation/consciousness: patient oriented x3 HENMT: Head: normocephalic and atraumatic Ears: hearing grossly normal bilaterally Face/Nose/Sinus: Normal nares present Mouth: Yes Normal oral and palatal mucosa present Eyes: Periorbital: periorbital findings normal Sclera: sclerae normal EOM: EOMs intact bilaterally Neck: Neck: normal visual inspection, no lymphadenopathy and trachea midline Chest: Chest palpation & inspection: normal inspection of the chest Resp: Effort & Inspection: normal respiratory effort Auscultation: clear to auscultation bilaterally Cardio: Jugular venous distension: no JVD Rate: regular rate Rhythm: regular rhythm Heart sounds: S1 normal heart sound present and S2 normal heart sound present Peripheral pulses: Peripheral pulses 2+ throughout GI: Inspection:
--- NOTE | 2023-11-29 07:10 | WPDHPUPDATE1 ---
History and Physical Update Update Date/Time: 11/29/23 07:10 History and Physical has been reviewed, including an updated exam of the patient. There are NO changes in the patient's condition. Risks, benefits, and alternatives have been discussed and questions answered. Patient agrees to proceed with procedure.
--- NOTE | 2023-11-29 07:14 | P.PNAN_ITS ---
Anes - Initial Pre Proc Eval Procedure: Operation Date: 11/29/23 07:30 Proposed Procedures p Laparoscopic Umbilical Hernia Repair with Mesh, Davinci Assisted - Robert Pan DO Date/Time: 11/29/23 07:14 Surgeon: Robert Pan DO Pre Op Diagnosis: Umbilical Hernia Patient Data Age: 48 Gender: F Height: 1.73 m Weight: 110 kg Allergies Allergy/AdvReac Type Severity Reaction Status Date / Time bita Allergy Mild Unknown Verified 11/20/23 13:03 tramadol [From Ultram] Allergy Mild Dizziness Verified 11/20/23 13:02 vilazodone [From Viibryd] Allergy Mild Abdominal Verified 11/20/23 13:02 Pain Home Medications Medication Instructions Recorded Confirmed Type cetirizine 10 mg tablet (Zyrtec) 10 mg PO DAILY PRN Sinus Symptoms 12/17/21 11/20/23 History cholecalciferol (vitamin D3) 25 25 mcg PO DAILY 12/17/21 11/20/23 History mcg (1,000 unit) capsule atenolol 25 mg tablet 25 mg PO DAILY #90 tabs 03/31/23 11/20/23 Rx omeprazole 40 mg capsule,delayed 40 mg PO DAILY #90 caps 10/05/23 11/20/23 Rx release Patient hx anesthesia problems: none Family hx anesthesia problems: none Results Review: All pre-operative results and documents have been reviewed as part of the pre- operative evaluation. [facility] Past Medical History Medical History Goiter History of depression Inguinal hernia Palpitations with regular cardiac rhythm Vitamin D deficiency Surgical History Surgical History Delivery by section 1992, 1994, 2006 History of cholecystectomy 2004 History of hysterectomy 2006 Family History Family History Mother Cervical cancer Mother Rheumatoid arthritis Social History Social History Smoking packs per day: 0.5 Smoking cigarettes per day: 10.0 Years smoked: 24 Smoking pack-years: 12.00 Smoking status: Current every day smoker Tobacco type: cigarettes Second hand tobacco smoke exposure: Yes Additional smoking assessment comments: 1 pack a day, smoking for 19 years Alcohol intake: current Drinks per week: 3 Substance use: current Substance use type: does not use Living arrangements: with family Spiritual care concerns: No Comments smoked yesterday Anes - Eval Final PreProcedure Day of Procedure 11/29/23 07:14 Patient weight: overweight Heart: regular rate and rhythm Lungs: clear to auscultation Airway: Mallampati scale class II Neurological: alert and oriented Last oral intake: >/= 8 hours ASA classification: II Emergent: no Anesthetic plan: proceed Anesthesia type and monitoring: general ETT and standard monitoring Results Review: All pre-operative results and documents have been reviewed as part of the pre- operative evaluation. Informed Consent: The patient's anesthetic plan and its attendant risks and benefits were discussed with the patient/family/POA. Questions were solicited and answers provided to the satisfaction of the patient/family/POA.
[2023-11-29] MEDS: ceFAZolin 2 GM/D5W 50 ML 2 GM/50 ML BAG IVPB (07:28)
[2023-11-29] MEDS: BUPIVACAINE/EPINEPHRINE 0.5% 10 ML VIAL 30 ML INFILTRATE (08:27)
--- NOTE | 2023-11-29 09:32 | W.PM.PROC2 ---
Procedure Note - Detailed Date of Procedure 11/29/23 Pre-op Diagnosis Umbilical Hernia Post-op Diagnosis Same (2 cm umbilical hernia) Procedure Performed Laparoscopic 2 cm umbilical hernia repair with mesh, da Richard assisted Surgeon Robert Pan DO Anesthesia General and Local (0.5% bupivacaine with epinephrine) Indications This is a 48-year-old woman who presented with a periumbilical bulge and pain that she has noticed for the past several years. She states that she has had issues since her in 2005. All of her pain is located just above her umbilicus. She has had a CT which showed a small umbilical hernia and MRI that showed umbilical hernia and mild rectus diastasis. Discussions were made with the patient about treatment options and decision was made to proceed with robotic assisted laparoscopic umbilical hernia repair with mesh. Findings Laparoscopic umbilical hernia repair with mesh, de Richard assisted was performed. The patient was noted to have some scar tissue in the lower midline involving some omentum scarred up to the abdominal wall. The adhesions were taken down and no hernia was identified in the lower abdomen. She did have a small 2 cm umbilical hernia and a mild rectus diastasis. A robotic intraperitoneal onlay mesh technique was utilized for repair. The preperitoneal fat and hernia sac were excised and the falciform ligament was taken down for about 10 cm cephalad to the umbilicus. I then ran a 0 Stratafix suture from the upper midline all the way to about 5 cm below the umbilicus to adequately approximate the fascia and repair the rectus diastasis. I then placed a Ventralight ST 15 cm x 10 cm mesh and overlapped the entire length of the suture. No other intra-abdominal abnormalities were noted. No specimens were obtained for pathology. Description of Procedure Procedure as well as risks, benefits, and alternatives were discussed with the patient. Written consent was obtained and placed in chart prior to procedure. Patient was brought back to surgical suite. She was placed supine on operating table. Time-out was done to confirm patient and procedure. She was then intubated by the anesthesia department. A bump was placed under her left hip, and the bed was flexed slightly to extend the space between her costal margin and iliac crest. Her abdomen was prepped and draped in sterile fashion using chlorhexidine prep. A 5 millimeter incision was made in the left upper quadrant, and a 5 millimeter Optiview trocar was advanced through the abdominal layers under direct visualization. Once inside the abdominal cavity, carbon dioxide insufflation was used to create a pneumoperitoneum. Her abdomen was inspected. An 8 millimeter incision was made in the left lower quadrant, and an 8 millimeter robotic trocar was placed under direct visualization. Another 8 millimeter incision was made in the left lateral abdomen, and an 8 millimeter robotic trocar was placed under direct visualization. 0.5% bupivacaine with epinephrine was infiltrated around each port site. The 5 millimeter port was removed, and an 8 mm robotic trocar was placed under direct visualization. The robotic arms were brought up to the patient's bedside and secured to the ports. The camera and instruments were inserted, and I then moved over to the robotic console and took control of the camera and instruments. After careful thorough inspection of the abdominal cavity, I began my dissection at the hernia. I took down some adhesions in the lower abdomen involving omentum up to the abdominal wall using scissors with electrocautery. This allowed me to see the entire abdominal wall. The preperitoneal fat around the hernia defect was taken down using scissors with electrocautery. I then excised the preperitoneal fat for several cm above and below the hernia defect. The falciform ligament was then taken down until I had about 10 cm of visible linea alba cephalad to the um
[2023-11-29] MEDS: fentaNYL CITRATE INJ (*CRX) 100 MCG/2 ML VIAL 25 MCG IV PUSH ×5 (09:44→10:22)
[2023-11-29] MEDS: HYDROmorphone HCL INJ (*CRX) 1 MG/ML SYR IV PUSH ×6 (09:56→20:14)
--- NOTE | 2023-11-29 10:20 | SUR.PHASEI ---
Dr. Pan at bedside to see patient due to persistent pain unrelieved by ordered pain medications. Per Viviane plan is to admit patient to floor for pain control.
--- NOTE | 2023-11-29 11:11 | ADMGEN ---
This patient, Jennifer Roman, was admitted to -. Patient/family oriented to hospital policies and general routines including ID bracelet, bed and alarms, visiting hours, pain management, procedures, bathroom and other care routines, personal items, smoking policy, room service/diet, and visiting hours. Information on how to activate the Rapid Response Team has been discussed. Patient/Family are encouraged to report perceived risks to care and to ask questions if they do not understand what they are told or what they should do.
[2023-11-29] MEDS: LACTATED RINGERS 1,000 ML 100 ML IV CONT (11:36)
[2023-11-29] MEDS: ONDANSETRON INJ 4 MG/2 ML VIAL IV PUSH ×3 (11:38→18:02)
[2023-11-29] MEDS: ACETAMINOPHEN 325 MG TABLET 650 MG PO ×2 (12:19→18:02)
[2023-11-29] MEDS: IBUPROFEN IV 800 MG/200 ML 800 MG/200 ML BAG 400 MG IVPB ×2 (14:08→20:18)
[2023-11-29] MEDS: PANTOPRAZOLE 40 MG TABLET PO (20:18)
[2023-11-30] MEDS: ACETAMINOPHEN 325 MG TABLET 650 MG PO ×2 (00:33→06:22)
[2023-11-30 00:40] VITALS: BP 123/64; PULSE 65; RESP 14; TEMP 36.2; O2SAT 95
[2023-11-30] MEDS: IBUPROFEN IV 800 MG/200 ML 800 MG/200 ML BAG 400 MG IVPB ×2 (02:33→08:46)
[2023-11-30 04:57] VITALS: BP 117/59; PULSE 63; RESP 16; TEMP 36.2; O2SAT 96
[2023-11-30 07:06] LABS: Anion Gap 6 mmol/L (4-12); Blood Urea Nitrogen 13 mg/dL (7-17); Calcium 9.3 mg/dL (8.4-10.2); Carbon Dioxide 30 mmol/L (22-30); Chloride 101 mmol/L (98-107); Estimated CRCL calculation 98 ml/min; Estimated Glomerular Filt Rate > 60; Glucose 109 mg/dL (65-110); Potassium 4.4 mmol/L (3.4-5.0); Sodium 137 mmol/L (137-145)
[2023-11-30 07:07] LABS: Hematocrit 40.9 % (37.0-47.0); Hemoglobin 13.8 g/dL (12.0-15.0); Mean Corpuscular HGB Conc 33.7 g/dl (32-36); Mean Corpuscular Volume 100.7 fl (80-100); Mean Platelet Volume 10.3 fl (7.4-10.4); Platelet Count Result 216 k/mm3 (150-375); Red Blood Count 4.06 M/mm3 (4.2-5.4); Red Cell Distribution Width 11.9 % (11.5-14.5); White Blood Count 17.1 K/mm3 (4.5-10.0)
[2023-11-30 08:43] VITALS: BP 122/59; PULSE 81; RESP 16; TEMP 36.2; O2SAT 96
[2023-11-30] MEDS: polyethylene glycoL 3350 17 GM POWD.PACK PO (08:52)
[2023-11-30 08:56] VITALS: PULSE 88
[2023-11-30] MEDS: atenoloL 25 MG TABLET PO (08:56)
[2023-11-30] MEDS: PANTOPRAZOLE 40 MG TABLET PO (08:56)
--- NOTE | 2023-11-30 11:13 | PM.PNGS ---
Progress Note: A&P Assessment and Plan (1) Encounter for follow-up examination after completed treatment for conditions other than malignant neoplasm: Code(s): Z09 - Encounter for follow-up examination after completed treatment for conditions other than malignant neoplasm Status: Acute Assessment and Plan: Doing well on POD#1. Patient stayed overnight due to difficulty with postop pain control requiring multiple doses of IV narcotics in recovery. Now pain is much better controlled and she feels comfortable being discharged home. Discharge instructions discussed with patient. Follow up as scheduled. (2) Other specified postprocedural states: Code(s): Z98.890 - Other specified postprocedural states Status: Acute Subjective Subjective Date/Time Seen: 11/30/23 11:13 Interval history: Doing much better today. Pain has been better controlled with IV Ibuprofen and oral acetaminophen. No nausea or vomiting. Tolerating light activity. Exam Const: General: comfortable and no acute distress GI: Inspection: non-distended and incision (intact with glue) GI Palp: Yes Soft to palpation and Yes Tenderness to palpation present (GI) (in location of hernia repair) Auscultation: normal bowel sounds Objective Data Vital Signs Vital Signs: Vital Signs - 24 hr 11/29/23 11:15 11/29/23 11:30 11/29/23 12:00 Temperature 97.1 F L 96.0 F L 96.3 F L Pulse Rate 69 59 L 64 Respiratory Rate 16 16 18 Blood Pressure 105/81 100/72 102/68 Pulse Oximetry 95 96 97 Oxygen Delivery 11/29/23 20:57 11/29/23 20:00 11/30/23 00:40 Temperature 97.5 F L 97.2 F L Pulse Rate 65 65 Respiratory Rate 14 14 Blood Pressure 142/69 H 123/64 Pulse Oximetry 93 95 Oxygen Delivery Room Air 11/30/23 04:57 11/30/23 08:43 11/30/23 08:56 Temperature 97.2 F L 97.1 F L Pulse Rate 63 81 88 Respiratory Rate 16 16 Blood Pressure 117/59 L 122/59 L Pulse Oximetry 96 96 Oxygen Delivery Intake/Output Intake/Output: Intake & Output 11/27/23 11/28/23 11/29/23 11/30/23 23:59 23:59 23:59 23:59 Intake Total 860 1200 Balance 860 1200 Meds/Results Medications: Active Medications Generic Name Dose Route Start Last Admin Trade Name Freq PRN Reason Stop Dose Admin Acetaminophen 650 mg 11/29/23 13:00 11/30/23 06:22 Acetaminophen 325 Mg Tablet PO 650 mg Q6H CORY Administration Atenolol 25 mg 11/30/23 09:00 11/30/23 08:56 Atenolol 25 Mg Tablet PO 25 mg DAILY CORY Administration Diphenhydramine HCl 25 mg 11/29/23 11:12 Diphenhydramine Hcl Inj 50 Mg/Ml Vial IV PUSH Q6H PRN Itching Enoxaparin Sodium 40 mg 11/30/23 09:00 11/30/23 08:59 Enoxaparin 40 Mg/0.4 Ml Syringe SUB-Q Not Given DAILY CORY Hydromorphone HCl 1 mg 11/29/23 11:12 11/29/23 20:14 Hydromorphone Hcl Inj (*Crx) 1 Mg/Ml Syr IV PUSH 1 mg Q2H PRN Administration Breakthrough Pain Rated 7-10 or NPO Hydromorphone HCl 0.5 mg 11/29/23 11:12 Hydromorphone Hcl Inj (*Crx) 1 Mg/Ml Syr IV PUSH Q2H PRN Breakthrough Pain Rated 4-6 or NPO Ibuprofen 800 mg in 200 mls @ 400 mls/hr 11/29/23 15:00 11/30/23 09:16 Caldolor 800 Mg/200 Ml IVPB Infused Q6H CORY Infusion Loratadine 10 mg 11/29/23 11:19 Loratadine 10 Mg Tablet PO DAILY PRN Sinus Symptoms Naloxone HCl 0.1 mg 11/29/23 11:12 Naloxone Hcl 0.4 Mg/Ml Vial IV PUSH Q2M PRN Opiate Reversal Ondansetron HCl 4 mg 11/29/23 11:12 11/29/23 18:02 Ondansetron Inj 4 Mg/2 Ml Vial IV PUSH 4 mg Q4H PRN Administration Nausea And Vomiting Oxycodone HCl 5 mg 11/29/23 11:12 Oxycodone Hcl (*Crx) 5 Mg Tab Ir PO Q4H PRN Pain Rated 4-6 Oxycodone HCl 10 mg 11/29/23 11:12 Oxycodone Hcl (*Crx) 5 Mg Tab Ir PO Q4H PRN Pain Rated 7-10 Pantoprazole Sodium 40 mg 11/29/23 21:00 11/30/23 08:56 Pantoprazole 40 Mg Tablet PO 40 mg Q12HR CORY Administratio
== END 2023-11-30 12:02 | disposition home or self-care (01) ==
LOC: ANHSURGERY 05:57 → ANH3MEDSUR 11:14
PROVIDERS: PCP Family Medicine; Visit Provider Surgery
PROC: (CPT 49591; principal; 2023-11-29 07:30)
DX: K42.9 Umbilical hernia without obstruction or gangrene (principal); M62.08 Separation of muscle (nontraumatic), other site; K66.0 Peritoneal adhesions (postprocedural) (postinfection); F32.A Depression, unspecified; E55.9 Vitamin D deficiency, unspecified; F17.210 Nicotine dependence, cigarettes, uncomplicated; Z98.890 Other specified postprocedural states; Z90.49 Acquired absence of other specified parts of digestive tract; Z80.49 Family history of malignant neoplasm of other genital organs
CPT/HCPCS: 49591; S2900; 36415; 80048; 85027; A9270; C1781; J0690; J1100; J1170; J1596; J1741; J1885; J2250; J2371; J2405; J2704; J3010; J7030; J7120

== ENCOUNTER 2024-01-04 08:11 | Outpatient (CLI) | payer BC, SELFPAY ==
[2024-01-04 18:52] LABS: Basophils Absolute Auto 0.1 K/mm3 (0.0-0.1); Basophils Percent Auto 0.6 % (0.2-1.2); Eosinophils Absolute Auto 0.3 K/mm3 (0-0.3); Eosinophils Percent Auto 2.5 % (0-4.4); Hematocrit 46.8 % (37.0-47.0); Hemoglobin 15.8 g/dL (12.0-15.0); Immature Granulocyte Percent A 0.8 % (0-0.5); Lymphocytes Absolute Auto 3.05 K/mm3 (0.9-3.2); Lymphocytes Percent Auto 24.4 % (18.3-44.2); Mean Corpuscular HGB Conc 33.8 g/dl (32-36); Mean Corpuscular Hemoglobin 34.5 pg (26-34); Mean Corpuscular Volume 102.2 fl (80-100); Mean Platelet Volume 10.3 fl (7.4-10.4); Monocytes Percent Auto 7.8 % (2.6-8.5); Neutrophils Percent Auto 63.9 % (45.5-73.1); Platelet Count Result 242 k/mm3 (150-375); Red Blood Count 4.58 M/mm3 (4.2-5.4); Red Cell Distribution Width 11.9 % (11.5-14.5); White Blood Count 12.5 K/mm3 (4.5-10.0)
[2024-01-04 19:32] LABS: Alanine Aminotransferase 39 U/L (6-35); Albumin Level 4.2 g/dL (3.5-5.1); Alkaline Phosphatase 91 U/L (38-126); Anion Gap 6 mmol/L (4-12); Aspartate Amino Transferase 44 U/L (14-36); Bilirubin,Total 0.6 mg/dL (0.2-1.3); Blood Urea Nitrogen 16 mg/dL (7-17); Calcium 9.9 mg/dL (8.4-10.2); Carbon Dioxide 29 mmol/L (22-30); Chloride 102 mmol/L (98-107); Cholesterol 191 mg/dL (0-200); Estimated Glomerular Filt Rate > 60; Glucose 87 mg/dL (65-110); HDL Direct 49 mg/dL; Potassium 4.9 mmol/L (3.4-5.0); Sodium 137 mmol/L (137-145); Triglycerides 122 mg/dL (<150)
[2024-01-04 19:43] LABS: LDL Cholesterol Direct 110 mg/dL
[2024-01-04 20:10] LABS: Thyroid Stimulating Hormone Reflex 0.531 uIU/mL (0.465-4.68)
[2024-01-04 20:12] LABS: Vitamin D 25 Hydroxy 35.4 ng/mL
[2024-01-04 21:35] LABS: Hemoglobin A1C 5.3 % (<5.7)
== END 2024-01-04 08:12 | disposition home or self-care (01) ==
LOC: ANHGOSHLAB 08:13
PROVIDERS: PCP Family Medicine; Visit Provider Family Medicine
DX: Z00.00 Encounter for general adult medical examination without abnormal findings (principal); E55.9 Vitamin D deficiency, unspecified; I10 Essential (primary) hypertension; K21.9 Gastro-esophageal reflux disease without esophagitis; Z68.36 Body mass index [BMI] 36.0-36.9, adult; E53.8 Deficiency of other specified B group vitamins; R73.03 Prediabetes; E78.5 Hyperlipidemia, unspecified
CPT/HCPCS: 36415; 80053; 80061; 82306; 82607; 83036; 84443; 85025

== ENCOUNTER 2024-05-07 15:33 | Outpatient (CLI) | payer BC, SELFPAY ==
--- OUTSIDE RECORDS SUMMARY | 2024-05-07 18:04 | XMS_ITS | Patient Health Summary ---
Author Organization [facility] Address [address] [place] [address] Care Team Providers Care Credit Risk Analyst Name Role Phone Unavailable Primary Care Provider Unavailabl e Note from [facility],non-owned Affiliates and Associated Physician Practices is amultiple site organization consisting of ambulatory clinics and hospital sitesin [place], [place], [place] and [place]. This disclosure is being madepursuant to the Care Everywhere program and may not contain all information available regarding this patient. Last updated 17.[facility] Allergies * Ivett Oil(Anaphylaxis) -High Criticality * Tramadol(Unknown) Medications * Be aware that medications may not be up to date on this document. Alwaysverify current medications with the patient. 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
--- OUTSIDE RECORDS SUMMARY | 2024-05-07 18:04 | XMS_ITS | Clinical Summary ---
Author Organization [facility] Address [address] [place] [address] Care Team Providers Care Pen Tester Name Role Phone Unavailable Primary Care Provider Unavailabl e Source Comments [facility],non-owned Affiliates and Associated Physician Practices is amultiple site organization consisting of ambulatory clinics and hospital sitesin [place], [place], [place] and [place]. This disclosure is being madepursuant to the Care Everywhere program and may not contain all information available regarding this patient. Last updated 17.[facility] Allergies Active Allergy Reactions Criticality Noted Date Comments Ivett Oil Anaphylaxis High 01/25/2019 Tramadol Unknown 01/25/2019 Medications * Be aware that medications may not be up to date on this document. Alwaysverify current medications with the patient. Medication Sig Dispensed Refills Start Date End Date Status albuterol HFA (PROVENTIL;VENTOLIN; PROAIR) 108 (90 Base) MCG/ACT inhaler Inhale 2 puffs by mouth every 4 hours as needed 1 Inhaler 01/25/2019 Active methylPREDNISolone (MEDROL DOSEPAK) 4 MG tablet Take by mouth as directed 1 Each 01/25/2019 Active Social History Tobacco Use Types Packs/Day Years Used Date Smoking Tobacco: Every Day Smokeless Tobacco: Never Sex and Gender Information Value Date Recorded Sex Assigned at Not on file Gender Identity Not on file Sexual Orientation Not on file Last Filed Vital Signs Vital Sign Reading Time Taken Comments Blood Pressure 122/82 01/25/2019 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 Pulse 97 01/25/2019 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 Temperature 36.8 C (98.2 F) 01/25/2019 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 Respiratory Rate - - Oxygen Saturation 98% 01/25/2019 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 Inhaled Oxygen Concentration - - Weight 108.9 kg (240 lb) 01/25/2019 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 Height 172.7 cm (5' 8 ) 01/25/2019 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 Body Mass Index 36.49 01/25/2019 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 Plan of Treatment Health Maintenance Due Date Last Done Comments COLOGUARD (AGES 45-75) - COL ON CA SCREENING 1976 COLON MONITORING 1976 COLONOSCOPY - COLON CA SCREENING 1976 CT COLONOGRAPHY - COLON CA SCREENING 1976 Colorectal Cancer Screening 1976 FIT - COLON CA SCREENING 1976 FLEX SIG - COLON CA SCREENING 1976 LIPID TESTING 1976 MAMMOGRAM 1976 PAP SMEAR 1976 HIV SCREENING 1991 HEPATITIS C SCREENING 03/21/1994 DTAP/TDAP/TD VACCINES (1 - Tdap) 1995 HEPATITIS B VACCINE (1 of 3 - 19+ 3-dose series) 1995 PNEUMOCOCCAL VACCINE (1 of 2 - PCV) 1995 SCREENING FOR DIABETES 01/25/2019 COVID-19 VACCINE ( - 2023-2 5 season) 2023 INFLUENZA VACCINE (#1) 2023 DEPRESSION SCREENING 03/13/2024 ZOSTER VACCINE (1 of 2) 2026 HIB VACCINE Aged Out No longer eligi ble based on patient's age to complete this topic HPV VACCINE Aged Out No longer eligi ble based on patient's age to complete this topic MENINGOCOCCAL (Group B) VACCINE Aged Out No longer eligible based on patient's age to complete this topic MENINGOCOCCAL VACCINE Aged Out No raffaele krupa eligible based on patient's age to complete this topic
--- OUTSIDE RECORDS SUMMARY | 2024-05-07 18:04 | XMS_ITS | Clinical Summary ---
Author Organization [facility] Address [address] [place] [address] Care Team Providers Care Flattening Press Operator Name Role Phone Chayo Haddad MD Primary Care Provider Allergies Active Allergy Reactions Criticality Noted Date Comments Ivett Anaphylaxis,Itching High 10/01/2018 Ivett Oil Anaphylaxis High 01/25/2019 Tramadol Mental status changes,Dizziness,Nausea only,Unknown High 01/25/2019 Reaction: Confusion, Dizziness, Nausea, Vilazodone Diarrhea,Stomach upset Low 10/16/2018 Reaction: Abdominal pain, Diarrhea, Medications cholecalciferol (VITAMIN D3) 1,000 unit capsule 0 0 11/09/2015 Active cetirizine (ZyrTEC) 10 mg tablet Take 1 tablet (10 mg total) by mouth daily Active atenoloL (TENORMIN) 25 mg tablet Take 1 tablet (25 mg total) by mouth daily 10/27/2023 Active HYDROcodone-isaiah atropine 1-0.3 mg/mL syrup Take 5 mL by mouth 4 (four) times a day as needed for cough 120 mL 12/24/2023 Active predniSONE (DELTASONE) 50 mg tablet Take 1 tablet (50 mg) by mouth daily 5 tablet 12/24/2023 Active albuterol HFA (PROVENTIL HFA,VENTOLIN HFA,PROAIR HFA) 90 mcg/actuation inhaler Inhale 2 puffs every 4 (four) hours as needed for wheezing 8 g 12/24/2023 12/24/19 25 Active Active Problems Problem Noted Date Diagnosed Date Multinodular goiter 12/24/2019 Assessment & Plan (12/24/2019 3:17 PM CDT): I looked at Mrs. Roman's thyroid under our ultrasound machine The thyroid gland is very homogeneous in echotexture, without any suggestion of thyroiditis. There are some subcentimeter nodules, none larger than 1 cm in size. ( the report of the ultrasound done in November, with there is mention of a 8 cm nodule, must be typo meaning it is 0.8 cm ) I explained to the patient how due to the small size of this nodule there is no need for any biopsy at this time. I also explained to her how her thyroid does not look inflamed are all and her local symptoms at the level the throughout are probably related to postnasal drip, caused by allergies or also to GERD Further studies, as per primary care doctor I would see her again in 6 months to repeat a thyroid ultrasound Diastasis of rectus abdominis 10/16/2018 Assessment & Plan (10/16/2018 9:12 AM CDT): We have gone over what a diastasis is and that it is not a true hernia. I am going to make a referral to physical therapy to help with strengthening of the core to see if some of this will resolve. I favor that this will help her initial pain that brought her in to see us. Hemangioma 10/16/2018 Assessment & Plan (10/16/2018 9:13 AM CDT): It sounds like she has never been told that she has had a hemangioma that was seen on previous scans. We have gone over what a hemangioma is. Unless this becomes symptomatic this is something that needs no further follow-up. Umbilical hernia without obstruction and without gangrene 10/09/2018 Assessment & Plan (10/16/2018 9:10 AM CDT): Currently this is asymptomatic. It does not appear to have increased significantly since her last imaging. For now we are going to watch and wait to see if this increases in size or become symptomatic. I have gone over the signs of obstruction and she knows that this is an emergency and to come in if anything like this occurs. Assessment & Plan (10/09/2018 10:48 AM CDT): I have gone over the results of the CT scan with the patient. There are no signs of a ventral hernia that she was told about in the emergency department. She does have a fat containing umbilical hernia. This area however is nontender and appears to be stable from the several years previously where she was told she initially had this. there are no fascial defects seen on the CT scan. I would not expect the umbilical hernia that is completely asymptomatic to cause pain that is radiating up into the ventral area. Given the asymptomatic nature and stable appearance compared to the last CT scan for now this will be managed conservatively. Epigastric pain 10/09/2018 Assessment & Plan (10/16/2018 9:11 AM CDT): I still feel like the majority of her symptoms are from heavy lifting and muscle strain or the diastasis. However given the fact that some of the bloating may have gotten better with her stoppin the Mountain Dew I have discussed referral to GI for potential upper endoscopy to ensure no gastric source the some of the epigastric pain. Assessment & Plan (10/09/2018 10:53 AM CDT): There is no clear-cut reason for the pain that she is having on current exam. She does have a small diastasis but I would not expect this to be causing the significant amount of pain. She does do a significant amount of heavy lifting with work as was possible that she has a significant muscle tear or strain. It is also possible that there is a extremely small fascial defect that we just cannot appreciate on the CT. I will order a MRI of the abdomen to better appreciate the soft tissue structure as well as the muscles to see if there is any clear-cut reason for the pain. If there only appears to be the small diastasis we have discussed physical therapy prior to any surgical intervention. If no acute findings we have discussed fixing the umbilical hernia and taking a look from the underside at the time of surgery to see if there is any acute finding to account for the pain. The patient is in understanding. Nephromegaly 11/03/2015 Ovarian retention cyst 11/03/2015 Mass of skin 09/27/2012 Surgical History Surgery Date Site/Laterality Comments SECTION section x 3 CHOLECYSTECTOMY Cholecystectomy PARTIAL HYSTERECTOMY partial hysterectomy Medical History Medical History Date Comments Anxiety Family History Medical History Relation Name Comments Hypertension Father Hypertension; Fibromyalgia Mother Fibromyalgia; Hypertension Mother Hypertension; Uterine cancer Mother Cancer, uteri ne; Relation Name Status Comments Father Mother Social History Tobacco Use Types Packs/Day Years Used Date Smoking Tobacco: Former Smokeless Tobacco: Never Alcohol Use Standard Drinks/Week Comments No 0 (1 standard drink = 0.6 oz pur e alcohol) PHQ-2 Answer Date Recorded PHQ-2 Total Score (If total score is 3 or more points, staff should administer the PHQ-9) 0 12/24/2019 Personal Safety Answer Date Recorded Have you ever been in or are you currently in a harmful physical or emotional relationship or is someone making you feel afraid or unsafe? 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 Gender Identity Not on file Sexual Orientation Not on file Obstetrics History Last Filed Vital Signs Vital Sign Reading Time Taken Comments Blood Pressure 150/80 12/24/2023 3:00 PM CDT Pulse 89 12/24/2023 3:00 PM CDT Temperature 36.9 C (98.5 F) 12/24/2023 11:21 AM CDT Respiratory Rate 20 12/24/2023 3:00 PM CDT Oxygen Saturation 93% 12/24/2023 3:00 PM CDT Inhaled Oxygen Concentration - - Weight 109.3 kg (241 lb) 12/24/2023 11:21 AM CDT Height 172.7 cm (5' 8 ) 12/24/2023 11:21 AM CDT Body Mass Index 36.64 12/24/2023 11:21 AM CDT Plan of Treatment Health Maintenance Due Date Last Done Comments Breast Cancer Screening-Mammogram 1976 Colon Cancer Screening-Colonoscopy 1976 Hepatitis C Screening 1976 DTaP/Tdap/Td Vaccine (1 - Tdap) 1987 Hepatitis B Screening 1994 Regular Well Visit/Exam 18-64 1994 Depression Screening 12/23/2020 12/24/2019 Covid-19 Vaccine ( season) 2023 12/23/2021, 02/25/2021, 04/08/2020, Additional history exists Influenza Vaccine (#1) 2023 12/22/2022 Pneumococcal vaccine <65 Aged Out No longer eligible based on patient's age to complete this topic Insurance [facility] CHO[facility] PRF PPO [place] Care Teams Flattening Press Operator Relationship Specialty Start Date End Date Chayo Haddad MD [address] [place] [address] PCP - General Family Practice 12/24/23
--- OUTSIDE RECORDS SUMMARY | 2024-05-07 18:04 | XMS_ITS | Referral Summary ---
Author Organization [facility] Address [address] [place] [address] Care Team Providers Care Environment Artist Name Role Phone Unavailable Primary Care Provider Unavailabl e Source Comments [facility],non-owned Affiliates and Associated Physician Practices is amultiple site organization consisting of ambulatory clinics and hospital sitesin [place], [place], [place] and [place]. This disclosure is being madepursuant to the Care Everywhere program and may not contain all information available regarding this patient. Last updated 17.[facility] [employer] Allergies Active Allergy Reactions Criticality Noted Date [...] Comments Blood Pressure 122/82 01/25/2019 4:22 PM NATIONAL SALES TRAINER Pulse 97 01/25/2019 4:22 PM NATIONAL SALES TRAINER Temperature 36.8 C (98.2 F) 01/25/2019 4:22 PM NATIONAL SALES TRAINER Respiratory Rate - - Oxygen Saturation 98% 01/25/2019 4:22 PM NATIONAL SALES TRAINER Inhaled Oxygen Concentration - - Weight 108.9 kg (240 lb) 01/25/2019 4:22 PM NATIONAL SALES TRAINER Height 172.7 cm (5' 8 ) 01/25/2019 4:22 PM NATIONAL SALES TRAINER Body Mass Index 36.49 01/25/2019 4:22 PM NATIONAL SALES TRAINER Plan of Treatment Not on file
--- OUTSIDE RECORDS SUMMARY | 2024-05-07 18:04 | XMS_ITS | Referral Summary ---
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
[2024-05-07 19:10] LABS: Alanine Aminotransferase 33 U/L (6-35); Alkaline Phosphatase 89 U/L (38-126); Anion Gap 8 mmol/L (4-12); Aspartate Amino Transferase 42 U/L (14-36); Bilirubin,Total 0.5 mg/dL (0.2-1.3); Blood Urea Nitrogen 15 mg/dL (7-17); Calcium 9.1 mg/dL (8.4-10.2); Carbon Dioxide 27 mmol/L (22-30); Chloride 103 mmol/L (98-107); Estimated Glomerular Filt Rate > 60; Glucose 93 mg/dL (65-110); Potassium 4.1 mmol/L (3.4-5.0); Sodium 138 mmol/L (137-145)
[2024-05-07 19:15] LABS: Basophils Absolute Auto 0.1 K/mm3 (0.0-0.1); Basophils Percent Auto 0.6 % (0.2-1.2); Eosinophils Absolute Auto 0.2 K/mm3 (0-0.3); Eosinophils Percent Auto 1.8 % (0-4.4); Hematocrit 41.4 % (37.0-47.0); Hemoglobin 14.3 g/dL (12.0-15.0); Immature Granulocyte Absolute 0.03 K/mm3 (0.00-0.031); Immature Granulocyte Percent A 0.3 % (0-0.5); Lymphocytes Absolute Auto 2.97 K/mm3 (0.9-3.2); Lymphocytes Percent Auto 28.8 % (18.3-44.2); Mean Corpuscular HGB Conc 34.5 g/dl (32-36); Mean Corpuscular Hemoglobin 33.8 pg (26-34); Mean Corpuscular Volume 97.9 fl (80-100); Mean Platelet Volume 10.2 fl (7.4-10.4); Monocytes Absolute Auto 0.9 K/mm3 (0.1-0.6); Neutrophils Absolute Auto 6.2 K/mm3 (1.3-6.7); Neutrophils Percent Auto 59.5 % (45.5-73.1); Platelet Count Result 253 k/mm3 (150-375); Red Blood Count 4.23 M/mm3 (4.2-5.4); Red Cell Distribution Width 11.8 % (11.5-14.5); White Blood Count 10.3 K/mm3 (4.5-10.0)
== END 2024-05-07 15:34 | disposition home or self-care (01) ==
LOC: ANHGOSHLAB 15:33
PROVIDERS: PCP Nurse Practitioner Family; Visit Provider Nurse Practitioner Family
DX: I10 Essential (primary) hypertension (principal)
CPT/HCPCS: 36415; 80053; 85025